=== PATIENT | female | born 1990 | race African-American/Black ===

== ENCOUNTER 2021-02-03 12:42 | Emergency (ER) | payer OTHER, SELFPAY ==
[2021-02-03 12:58] VITALS: BP 103/68; PULSE 76; RESP 16; TEMP 36.3; O2SAT 100
[2021-02-03] MEDS: diphenhydrAMINE HCl CAP 25 MG CAPSULE PO (13:36)
[2021-02-03] MEDS: predniSONE 20 MG TABLET 60 MG PO (13:36)
[2021-02-03] MEDS: FAMOTIDINE 20 MG TABLET PO (13:36)
--- NOTE | 2021-02-03 13:39 | ED.GENADULT ---
HPI - General Adult General Chief complaint: Skin/Abscess/Foreign Body Stated complaint: rash Time Seen by Provider: 02/03/21 13:19 Source: RN notes reviewed History of Present Illness HPI narrative: Patient presents emergency department from home for facial rash. Patient states she woke this morning with a rash on her bilateral face that was raised and itching she denies any new soaps lotions or detergents denies sleeping on any new sheets or blankets denies any swelling of lips or tongue or shortness of breath states she not take anything for the symptoms at home denies any fevers or chills Related Data Home Medications Medication Instructions Recorded Confirmed No Home Medications 02/03/21 02/03/21 Allergies Allergy/AdvReac Type Severity Reaction Status Date / Time No Known Allergies Allergy Verified 02/03/21 14:02 Review of Systems Review of Systems: Gen.: Denies fevers or chills Eyes: Denies eye pain or visual change ENT: Denies congestion or swelling of the lips or tongue Respiratory: Denies shortness of breath or cough CV: Denies chest pain GI: Denies abdominal pain nausea, emesis denies Musculoskeletal: Denies back pain or muscle pain Neuro: Denies headache Skin: See HPI Except as documented, all other systems reviewed and negative PMFSH Past Medical History Medical History (Updated 02/03/21 @ 14:56 by Adán Lr DO) Patient denies significant medical history Social History Social History Smoking status: Unknown if ever smoked Exam Narrative: APPEARANCE: No acute distress, nontoxic, resting in bed EYES: EOMI HEENT: Normocephalic, atraumatic, nares patent or mucosa moist no swelling of lips or tongue airway patent voice normal RESPIRATORY: No respiratory distress Clear to auscultation bilaterally with no rhonchi wheezing or rales. CARDIOVASCULAR: Regular rate and rhythm without murmurs rubs or gallops. ABDOMINAL: Soft, nontender, MUSCULOSKELETAl: Moves all extremities. NEURO: Awake and alert. Following commands, speech normal, no focal deficits SKIN:: Warm, dry. Bilateral cheeks and chin with erythematous raised rash with overlying excoriation no vesicles seen no drainage PSYCHIATRIC: Normal affect/mood, Course Course Emergency Course: Rash has improved with medication. Patient states itching has resolved Discussed with patient results of workup and diagnosis. Discussed need for follow-up with primary care, proper use of medication, and reasons to return to the emergency department. Patient understands and agrees to current treatment plan Vital Signs Vital signs: Vital Signs Temperature 97.3 F L 02/03/21 12:58 Pulse Rate 76 02/03/21 12:58 Respiratory Rate 16 02/03/21 12:58 Blood Pressure 103/68 02/03/21 12:58 Pulse Oximetry 100 02/03/21 12:58 Temperature 97.3 F L 02/03/21 12:58 Pulse Rate 76 02/03/21 12:58 Respiratory Rate 16 02/03/21 12:58 Blood Pressure 103/68 02/03/21 12:58 Pulse Oximetry 100 02/03/21 12:58 Medical Decision Making Vital Signs Vital Signs: Vital Signs Temperature 97.3 F L 02/03/21 12:58 Pulse Rate 76 02/03/21 12:58 Respiratory Rate 16 02/03/21 12:58 Blood Pressure 103/68 02/03/21 12:58 Pulse Oximetry 100 02/03/21 12:58 Temperature 97.3 F L 02/03/21 12:58 Pulse Rate 76 02/03/21 12:58 Respiratory Rate 16 02/03/21 12:58 Blood Pressure 103/68 02/03/21 12:58 Pulse Oximetry 100 02/03/21 12:58 Discharge Plan Discharge Clinical Impression: Contact dermatitis Patient Disposition: Home, Self-Care Condition: Stable Instructions: Antibiotic Form, Contact Dermatitis (ED) Additional Instructions: Return for increasing rash, swelling of the lips or tongue shortness of breath or any other symptoms of concern Prescriptions: New prednisone 20 mg tablet 20 mg PO BID Qty: 8 RF: 0 loratadine 10 mg caps
== END 2021-02-03 15:05 | disposition home or self-care (01) ==
PROVIDERS: Emergency Provider Emergency Medicine
DX: L25.9 Unspecified contact dermatitis, unspecified cause (principal)
CPT/HCPCS: 99283; A9270; J7512

== ENCOUNTER 2021-05-02 11:24 | Emergency (ER) | payer OTHER, SELFPAY ==
[2021-05-02] VITALS (10 sets, daily range): BP systolic 61–120; BP diastolic 46–76; PULSE 68–88; RESP 11–21; TEMP 36.6; O2SAT 99–100
--- NOTE | ~2021-05-02 | XR_ITS ---
EXAMINATION: XR chest 1V portable 05/02/2021 12:43 INDICATION: Chest pain PROCEDURE: AP portable chest COMPARISON: No prior studies for comparison. FINDINGS: The lungs are clear. The cardiomediastinal silhouette is within normal limits. There are no pleural effusions. There is no pneumothorax suspected. IMPRESSION: 1: NO ACUTE CARDIOPULMONARY DISEASE. Reviewed, dictated and finalized at location B. TILE SETTER
--- NOTE | 2021-05-02 12:35 | ECG_ITS ---
Measurements Intervals [place] Rate: 64 P: 79 [place]: 197 QRS: 79 QRSD: 76 T: 61 QT: 387 QTc: 401 Interpretive Statements SINUS RHYTHM NORMAL ECG Electronically Signed On 05-02-2021 13:55:46 [employer]UCATION FIN[employer]ESS[employer] by Alec Salas D.O.
[2021-05-02 13:02] LABS: Basophils Percent Auto 0.5 % (0.2-1.2); Eosinophils Absolute Auto 0.2 K/mm3 (0-0.3); Eosinophils Percent Auto 3.4 % (0-4.4); Hematocrit 39.9 % (37.0-47.0); Hemoglobin 13.7 g/dL (12.0-15.0); Immature Granulocyte Absolute 0.01 K/mm3 (0.00-0.031); Immature Granulocyte Percent A 0.2 % (0-0.5); Lymphocytes Absolute Auto 3.09 K/mm3 (0.9-3.2); Lymphocytes Percent Auto 52.3 % (18.3-44.2); Mean Corpuscular HGB Conc 34.3 g/dl (32-36); Mean Corpuscular Hemoglobin 30.8 pg (26-34); Mean Corpuscular Volume 89.7 fl (80-100); Mean Platelet Volume 9.5 fl (7.4-10.4); Monocytes Absolute Auto 0.6 K/mm3 (0.1-0.6); Neutrophils Percent Auto 33.6 % (45.5-73.1); Platelet Count Result 368 k/mm3 (150-375); Red Blood Count 4.45 M/mm3 (4.2-5.4); Red Cell Distribution Width 11.5 % (11.5-14.5); White Blood Count 5.9 K/mm3 (4.5-10.0)
--- NOTE | 2021-05-02 13:06 | ED.GENADULT ---
HPI - General Adult General Chief complaint: Unspecified Stated complaint: Hurts when she breaths Time Seen by Provider: 05/02/21 12:03 Source: patient, RN notes reviewed and old records reviewed Mode of arrival: ambulatory Limitations: no limitations History of Present Illness HPI narrative: This is a 30 year old female who presents for evaluation of lung pain , back and headache. Patient states she has been having pain in bilateral chest under breath with breathing. This has been occurring every other day for at least 1 year. She states her pain is becoming worse and more severe. She is also complaining of bilateral breast tenderness with drainage or redness. She has mild cough but denies shortness of breath. She also reports migratory headache for 2 days, although she reports having headaches for a while as well. She is also complaining about low back pain that has resolved. She has come to ER today because she wants to know if she has COVID, cancer or anything serious. She states she has spoken with her PCP about her chest pain but they told her she was fine. She denies fever, chills, vomiting, focal weakness or weight loss. She does not take control and her LMP was this week. Related Data Home Medications Medication Instructions Recorded Confirmed No Home Medications 02/03/21 02/03/21 Allergies Allergy/AdvReac Type Severity Reaction Status Date / Time No Known Allergies Allergy Verified 05/02/21 11:56 Review of Systems Review of Systems: All systems reviewed & are unremarkable except as noted in HPI and below PMFSH Past Medical History Medical History (Updated 05/02/21 @ 14:37 by Jocelin Polo MD) Patient denies significant medical history Surgical History Surgical History (Updated 05/02/21 @ 13:12 by Jocelin Polo MD) No pertinent past surgical history Social History Social History (Updated 05/02/21 @ 13:12 by Jocelin Polo MD) Smoking status: Former smoker Alcohol intake: current Substance use: former Substance use type: marijuana Exam Narrative: GENERAL: Well-appearing, well-nourished, and in no acute distress. HEAD: Normocephalic, atraumatic EYES: PERRLA and EOMI, conjunctiva clear without discharge EARS: TM's clear bilaterally without erythema or dullness NOSE: Nares clear, no rhinorrhea or epistaxis THROAT:Mucous membranes moist, Oropharynx normal without erythema, exudate, peritonsillar swelling or fluctuance NECK: Supple, without lymphadenopathy or mass RESPIRATORY: No respiratory distress, Airway patent, Respirations non-labored, Clear to auscultation without rales, rhonchi or wheeze HEART: Regular rate and rhythm. No murmur heard. Normal peripheral pulses. ABDOMEN: Soft, nontender, nondistended, normal active bowel sounds. No masses. No rebound or guarding, No organomegaly. EXTREMITIES: No edema, normal strength with full range of motion. SKIN: Warm, dry, normal color without rash NEURO: Alert and oriented x3. CN 2-12 grossly intact. No focal deficits. PSYCH: Normal mood and affect. Chest: Breast/axilla palpation: no axillary lymphadenopathy and abnormal palpation of the breast (bilateral breast tenderness, no mass, no nipple drainage) Course Reevaluation(s) Reevaluation #1: I have discussed with patient that she was found to have influenza B. Her symptoms started last week so out of window for tamiflu. I i discussed discharge plan. She understands follow up instructions if needed. Date: 05/02/21 Time: 14:10 Vital Signs Vital signs: Vital Signs Temperature 97.9 F 05/02/21 11:43 Pulse Rate 78 05/02/21 11:43 Respiratory Rate 15 05/02/21 11:43 Blood Pressure 120/76 05/02/21 11:43 Pulse Oximetry 100 05/02/21 11:43 Temperature 97.9 F 05/02/21 11:43 Pulse Rate 76 05/02/21 13:15 Respiratory Rate 13 05/02/21 13:15 Blood Pressure 95/66 L 05/02/21 12:18 Pulse Oximetry 100 05/02/21 12:30 Me
[2021-05-02 13:12] LABS: Alanine Aminotransferase 18 U/L (4-35); Albumin Level 4.6 g/dL (3.5-5.1); Alkaline Phosphatase 56 U/L (38-126); Anion Gap 8 mmol/L (8-16); Aspartate Amino Transferase 27 U/L (14-36); Blood Urea Nitrogen 21 mg/dL (7-17); Calcium 8.8 mg/dL (8.4-10.2); Carbon Dioxide 26 mmol/L (22-30); Chloride 103 mmol/L (98-107); Estimated Glomerular Filt Rate > 60; Glucose 101 mg/dL (65-110); Lipase 102 U/L (23-300); Potassium 3.4 mmol/L (3.4-5.0); Sodium 137 mmol/L (137-145)
[2021-05-02 13:15] LABS: Prothrombin Time 12.6 Seconds (11.1-14.7)
[2021-05-02 13:16] LABS: Partial Thromboplastin Time 25.4 SECONDS (22.3-36.8)
[2021-05-02 13:19] LABS: Add Urine Microscopic? YES; Appearance Urine Clear (Clear); Bacteria Urine Trace /hpf; Bilirubin Urine Negative (Negative); Blood Urine Negative (Negative); Color Urine Yellow (Yellow); Glucose Urine UA Negative (Negative); Ketones Urine Negative (Negative); Leukocyte Esterase Ur Negative LEU/UL (Negative); Mucus Urine Few /lpf; Nitrate Urine Negative (Negative); Protein Urine Negative (Negative); Squamous Epithelial Cell Urine Many /hpf (Few); WBC Urine 0-3 /hpf
[2021-05-02 13:23] LABS: D Dimer < 0.22 ug/mL (<0.48); Troponin I < 0.012 ng/mL (0.000-0.034)
--- NOTE | 2021-05-02 13:41 | PC.NURSE ---
REFUSES TORADOL SHOT
[2021-05-03 12:02] LABS: SARS-CoV-2 RNA PCR Negative
== END 2021-05-02 14:44 | disposition home or self-care (01) ==
PROVIDERS: Emergency Provider General Practice; PCP Internal Medicine Infectious Disease
DX: B34.9 Viral infection, unspecified (principal); N64.4 Mastodynia; Z20.822 Contact with and (suspected) exposure to COVID-19; Z87.891 Personal history of nicotine dependence
CPT/HCPCS: 36415; 71045; 80053; 81001; 81025; 83690; 84484; 85025; 85380; 85610; 85730; 93005; 99284; C9803; U0003; U0005

== ENCOUNTER 2022-03-11 19:50 | Observation (INO) | payer OTHER, SELFPAY ==
--- NOTE | ~2022-03-11 | CT_ITS ---
EXAMINATION: CT abdomen pelvis w con DATE: 03/12/2022 01:16 INDICATION: Epigastric, periumbilical, and right upper quadrant abdominal pain. TECHNIQUE: Computed tomography (CT) of the abdomen and pelvis was performed with 100 mL Omnipaque 350 intravenous contrast. Automated exposure control and iterative reconstruction technique were employe d. The dose-length product was 230.47 mGy-cm. COMPARISON: None. FINDINGS: The visualized portions of the lung bases demonstrate minimal atelectasis. No pleural effus ion. The heart size is normal. No pericardial effusion. The liver, gallbladder, spleen, pancreas, adr enal glands, and kidneys are normal. There are no dilated loops of bowel. The appendix is not visuali zed. There is a 2.1 cm corpus luteum cyst in the right ovary. There is physiologic fluid in the pelvi s. There are no pathologically enlarged lymph nodes. There is levoscoliosis of lumbar spine. IMPRESSION: 1. No specific etiology for the patient's symptoms. Reviewed, dictated and finalized at location A. LACER
[2022-03-11 20:08] VITALS: BP 114/69; PULSE 88; RESP 20; TEMP 36.3; O2SAT 99
[2022-03-11 23:33] VITALS: O2SAT 100
--- NOTE | 2022-03-11 23:35 | ED.ABDPAIN ---
HPI - Abdominal Pain General Chief Complaint: Abdominal Pain <ESTHER Licea Last Filed: 03/12/22 04:38> Stated Complaint: pain near belly button x 3 days <ESTHER Licea Last Filed: 03/12/22 04:38> Time Seen by Provider: 03/11/22 23:07 <ESTHER Licea Last Filed: 03/12/22 04:38> Source: patient <ESTHER Licea Last Filed: 03/12/22 04:38> Mode of arrival: ambulatory <ESTHER Licea Filed: 03/12/22 04:38> Limitations: no limitations <ESTHER Licea Last Filed: 03/12/22 04:38> History of Present Illness HPI narrative: Patient is a 31-year-old female who presents the ED with report of abdominal pain. Patient reports having constant pain in her periumbilical region for the last 3 days. She states the pain radiates up to her epigastric region, to her lower abdomen, and around to her back. She states pain is worse with eating. She has not tried anything for her pain. She denies any fever, nausea, vomiting, diarrhea, constipation, urinary sx's, rectal bleeding, Hx of similar pain. <ESTHER Licea Last Filed: 03/12/22 04:38> Related Data Home Medications: Home Medications Medication Instructions Recorded Confirmed No Home Medications 02/03/21 02/03/21 <ESTHER Licea Last Filed: 03/12/22 04:38> Allergies/Adverse Reactions: Allergies Allergy/AdvReac Type Severity Reaction Status Date / Time No Known Allergies Allergy Verified 05/02/21 11:56 <ESTHER Licea Last Filed: 03/12/22 04:38> Review of Systems Review of Systems: CONSTITUTIONAL: Denies fever, chills, or sweats. CARDIOVASCULAR: Denies chest pain. RESPIRATORY: Denies dyspnea. GASTROINTESTINAL: See HPI. Denies nausea, vomiting, constipation, rectal bleeding, or diarrhea. GENITOURINARY: Denies dysuria or hematuria. MUSCULOSKELETAL: See HPI. <Margaret Baig PA-C - Last Filed: 03/12/22 04:38> All systems reviewed & are unremarkable except as noted in HPI and below <Margaret Baig PA-C - Last Filed: 03/12/22 04:38> PMFSH Past Medical History Medical History: Medical History Patient denies significant medical history <Margaret Baig PA-C - Last Filed: 03/12/22 04:38> Surgical History Surgical History: Surgical History No pertinent past surgical history <Margaret Baig PA-C - Last Filed: 03/12/22 04:38> Social History Social History: Social History Smoking status: Former smoker Alcohol intake: current Substance use: former Substance use type: marijuana <Margaret Baig PA-C - Last Filed: 03/12/22 04:38> Exam Narrative: GENERAL: Well appearing, well-nourished, non-toxic, in no acute distress. HEAD: Normocephalic, atraumatic. NECK: Supple. No adenopathy, no masses. RESPIRATORY: Airway patent, respirations nonlabored. Clear to auscultation bilaterally, no rales, rhonchi, wheezing. CARDIOVASCULAR: Regular rate and rhythm without murmurs, rubs, or gallops. Peripheral pulses 2+ and equal bilaterally. ABDOMINAL: Soft, mild tenderness to palpation in periumbilical region, R mid and upper abdomen, epigastric region. Nondistended, no hepatosplenomegaly. Normoactive BS. MUSCULOSKELETAL: Moves all extremities. Strength/ROM intact without gross deformities. SKIN: Warm, dry, normal color. No rashes. NEURO: A&O X3. Speech clear. Cranial nerves II-XII grossly intact. Steady gait. No ataxic movements. PSYCHIATRIC: Appropriate mood and affect. Normal interaction. <Margaret Baig PA-C - Last Filed: 03/12/22 04:38> Course Course Emergency Course: Care turned over to myself at shift change seen evaluate myself. The abdomen is soft mild tender
[2022-03-11] MEDS: SODIUM CHLORIDE 0.9% IV 1,000 ML 999 ML IV CONT (23:44)
[2022-03-11 23:45] VITALS: O2SAT 100
[2022-03-11 23:46] VITALS: BP 109/67; O2SAT 100
[2022-03-11 23:53] LABS: Add Urine Microscopic? NO; Appearance Urine Clear (Clear); Bilirubin Urine Negative (Negative); Blood Urine Negative (Negative); Color Urine Yellow (Yellow); Glucose Urine UA Negative (Negative); Ketones Urine Negative (Negative); Leukocyte Esterase Ur Negative LEU/UL (Negative); Nitrate Urine Negative (Negative); Protein Urine Negative (Negative); Specific Grav Ur 1.025 (1.001-1.035); Urobilinogen Urine 0.2 mg/dL (<2.0)
[2022-03-11 23:55] LABS: Basophils Absolute Auto 0.1 K/mm3 (0.0-0.1); Eosinophils Absolute Auto 0.5 K/mm3 (0-0.3); Eosinophils Percent Auto 7.4 % (0-4.4); Hematocrit 42.2 % (37.0-47.0); Hemoglobin 14.3 g/dL (12.0-15.0); Immature Granulocyte Absolute 0.02 K/mm3 (0.00-0.031); Immature Granulocyte Percent A 0.3 % (0-0.5); Lymphocytes Percent Auto 59.3 % (18.3-44.2); Mean Corpuscular HGB Conc 33.9 g/dl (32-36); Mean Corpuscular Hemoglobin 31.8 pg (26-34); Mean Platelet Volume 9.8 fl (7.4-10.4); Monocytes Absolute Auto 0.5 K/mm3 (0.1-0.6); Monocytes Percent Auto 8.2 % (2.6-8.5); Neutrophils Absolute Auto 1.4 K/mm3 (1.3-6.7); Neutrophils Percent Auto 23.8 % (45.5-73.1); Platelet Count Result 309 k/mm3 (150-375); Red Blood Count 4.49 M/mm3 (4.2-5.4); White Blood Count 6.1 K/mm3 (4.5-10.0)
[2022-03-11 23:56] LABS: Mucus Urine Rare /lpf; Squamous Epithelial Cell Urine Many /hpf (Few); WBC Urine 0-3 /hpf
[2022-03-12] VITALS (30 sets, daily range): BP systolic 74–119; BP diastolic 47–94; PULSE 60–90; RESP 18; TEMP 35.9–36.8; O2SAT 93–100; BMI 24.5
[2022-03-12 00:41] LABS: Alanine Aminotransferase 17 U/L (6-35); Albumin Level 4.8 g/dL (3.5-5.1); Alkaline Phosphatase 47 U/L (38-126); Anion Gap 7 mmol/L (8-16); Aspartate Amino Transferase 27 U/L (14-36); Bilirubin,Total 1.2 mg/dL (0.2-1.3); Blood Urea Nitrogen 21 mg/dL (7-17); Calcium 9.3 mg/dL (8.4-10.2); Carbon Dioxide 27 mmol/L (22-30); Chloride 100 mmol/L (98-107); Estimated CRCL calculation 77 ml/min; Estimated Glomerular Filt Rate > 60; Glucose 82 mg/dL (65-110); Lipase 157 U/L (23-300); Potassium 4.2 mmol/L (3.4-5.0); Sodium 134 mmol/L (137-145)
--- NOTE | 2022-03-12 03:34 | PC.NURSE ---
Awaiting CT results
[2022-03-12 04:34] LABS: Beta HCG Quantitative < 2.39 mIU/ML
[2022-03-12 05:01] LABS: Hematocrit 38.4 % (37.0-47.0); Hemoglobin 12.8 g/dL (12.0-15.0)
[2022-03-12 06:11] LABS: Influenza A QL RT-PCR Negative (Negative); Influenza B QL RT-PCR Negative (Negative); RSV RNA, RT-PCR Negative (Negative); SARS-CoV-2 RNA PCR Negative
[2022-03-12] MEDS: SODIUM CHLORIDE 0.9% IV 1,000 ML 125 ML IV CONT (06:19)
--- NOTE | 2022-03-12 06:30 | OBADM ---
This patient, Sherry Sung, admitted to the OB room [facility] for observation. Patient/family oriented to hospital policies and general routines including ID bracelet, bed and alarms, visiting hours, pain management, procedures, bathroom and other care routines, personal items, smoking policy, room service/diet, and visiting hours. Patient/Family are encouraged to report perceived risks to care and to ask questions if they do not understand what they are told or what they should do.
--- NOTE | 2022-03-12 11:30 | PC.NURSE ---
Dr. Aviles at bedside to assess pt and discuss plan of care.
--- NOTE | 2022-03-12 11:39 | PM.IMHP ---
H&P: HPI History of Present Illness Date/Time: 03/12/22 11:39 Chief Complaint: abdominal pain Narrative: 31 yo admitted through ER with abdominal pain and initial read on CT of concern for an abdominal bleed. Hemoglobin went down 1.5 points but patient had also received a liter of fluid. Currently patient states pain is much better. She is able to lay on her side and take deep breaths each of which were very painful prior. No other complaints. [facility] Past Medical History Medical History (Updated 03/12/22 @ 11:41 by Daly Aviles MD) (normal spontaneous vaginal delivery) Surgical History Surgical History No pertinent past surgical history Social History Social History Smoking status: Former smoker Alcohol intake: current Substance use: former Substance use type: marijuana Meds Home Medications and Allergies Home Medications Medication Instructions Recorded Confirmed Type No Home Medications 02/03/21 03/12/22 History Allergies Allergy/AdvReac Type Severity Reaction Status Date / Time No Known Allergies Allergy Verified 05/02/21 11:56 Vital Signs Vital Signs - 24 hr 03/11/22 20:08 03/11/22 23:33 03/11/22 23:45 Temperature 97.4 F L Pulse Rate 88 Respiratory Rate 20 Blood Pressure 114/69 Pulse Oximetry 99 100 100 Oxygen Delivery Room Air 03/11/22 23:46 03/12/22 00:00 03/12/22 00:01 Temperature Pulse Rate Respiratory Rate Blood Pressure 109/67 74/47 L Pulse Oximetry 100 100 100 Oxygen Delivery 03/12/22 00:15 03/12/22 00:16 03/12/22 00:31 Temperature Pulse Rate Respiratory Rate Blood Pressure 92/67 L 103/62 Pulse Oximetry 100 100 100 Oxygen Delivery 03/12/22 00:32 03/12/22 03:34 03/12/22 00:45 Temperature 98.3 F Pulse Rate 63 Respiratory Rate 18 Blood Pressure 91/62 L Pulse Oximetry 100 100 100 Oxygen Delivery 03/12/22 00:46 03/12/22 01:00 03/12/22 01:01 Temperature Pulse Rate Respiratory Rate Blood Pressure 104/77 100/56 L Pulse Oximetry 100 100 100 Oxygen Delivery 03/12/22 01:18 03/12/22 01:30 03/12/22 01:45 Temperature Pulse Rate Respiratory Rate Blood Pressure Pulse Oximetry 100 95 100 Oxygen Delivery 03/12/22 03:34 03/12/22 03:35 03/12/22 03:45 Temperature Pulse Rate Respiratory Rate Blood Pressure 91/62 L Pulse Oximetry 100 100 100 Oxygen Delivery 03/12/22 03:46 03/12/22 03:49 03/12/22 04:00 Temperature Pulse Rate Respiratory Rate Blood Pressure 93/60 L 92/56 L Pulse Oximetry 100 100 100 Oxygen Delivery 03/12/22 04:01 03/12/22 04:15 03/12/22 04:16 Temperature Pulse Rate Respiratory Rate Blood Pressure 101/64 112/94 H Pulse Oximetry 100 100 100 Oxygen Delivery 03/12/22 04:30 03/12/22 04:31 03/12/22 06:07 Temperature 98.2 F Pulse Rate 90 Respiratory Rate 18 Blood Pressure 115/78 115/68 Pulse Oximetry 100 99 100 Oxygen Delivery 03/12/22 06:09 03/12/22 04:33 03/12/22 06:39 Temperature 98.1 F 96.6 F L Pulse Rate 90 Respiratory Rate 18 Blood Pressure 119/75 Pulse Oximetry 100 93 Oxygen Delivery 03/12/22 06:36 03/12/22 09:10 Temperature Pulse Rate 76 Respiratory Rate Blood Pressure 106/72 Pulse Oximetry Oxygen Delivery Room Air Exam Const: General: healthy appearing and comfortable; No acute distress Nutritional Appearance: thin Orientation/consciousness: patient oriented x3 Resp: Effort & Inspection: normal respiratory effort GI: Inspection: normal to inspection and non-distended GI Palp: Yes abdominal tenderness (very mild lower quadrants), Yes Soft to palpation and No Guarding due to palpation present (GI) H&P: Results Labs Labs: Short CBC 03/11/22 03/12/22 Range/Units 23:35 04:56 WBC 6.1
[2022-03-12 13:16] LABS: Hematocrit 43.7 % (37.0-47.0); Mean Corpuscular HGB Conc 34.3 g/dl (32-36); Mean Corpuscular Hemoglobin 31.3 pg (26-34); Mean Platelet Volume 9.7 fl (7.4-10.4); Platelet Count Result 340 k/mm3 (150-375); Red Cell Distribution Width 11.7 % (11.5-14.5); White Blood Count 6.7 K/mm3 (4.5-10.0)
--- NOTE | 2022-03-19 09:01 | PM.OBTRLD ---
OB - Triage/Final Diagnosis Visit Information Reason for evaluation: other ( abdominal pain) Comments/Additional reasons for admission: I have assessed the risk for this patient, Sherry Sung, and determined that she would benefit from observation care. Evaluation Laboratory results: Laboratory Tests 03/11/22 03/11/22 03/11/22 23:35 23:35 23:35 WBC 6.1 RBC 4.49 Hgb 14.3 Hct 42.2 MCV 94.0 MCH 31.8 MCHC 33.9 RDW 12.0 Plt Count 309 MPV 9.8 Immature Gran % (Auto) 0.3 Neut % (Auto) 23.8 L Lymph % (Auto) 59.3 H [place] % (Auto) 8.2 Eos % (Auto) 7.4 H Baso % (Auto) 1.0 Lymph # (Auto) 3.60 H [place] # (Auto) 0.5 Eos # (Auto) 0.5 H Baso # (Auto) 0.1 Abs Immat Gran (auto) 0.02 Absolute Neuts (auto) 1.4 Absolute Nucleated RBC 0.0 Nucleated RBC % 0.0 Sodium 134 L Potassium 4.2 Chloride 100 Carbon Dioxide 27 Anion Gap 7 L BUN 21 H Creatinine 0.70 Estim Creat Clear Calc 77 Estimated GFR > 60 Glucose 82 Calcium 9.3 Total Bilirubin 1.2 AST 27 ALT 17 Alkaline Phosphatase 47 Total Protein 8.0 Albumin 4.8 Lipase 157 Beta HCG, Quant Urine Color Yellow Urine Appearance Clear Urine pH 6.0 Ur Specific [place] 1.025 Urine Protein Negative Urine Glucose (UA) Negative Urine Ketones Negative Ur Blood (Man) Negative Urine Nitrate Negative Urine Bilirubin Negative Urine Urobilinogen 0.2 Leukocyte Esterase Rfl Negative Urine RBC 3-5 H Urine WBC 0-3 Ur Squamous Epith Cells Many H Urine Mucus Rare Influenza A (RT-PCR) Influenza B (RT-PCR) RSV (RT-PCR) SARS-CoV-2 RNA (RT-PCR) 03/11/22 03/12/22 03/12/22 23:35 04:56 05:27 WBC RBC Hgb 12.8 Hct 38.4 MCV MCH MCHC RDW Plt Count MPV Immature Gran % (Auto) Neut % (Auto) Lymph % (Auto) [place] % (Auto) Eos % (Auto) Baso % (Auto) Lymph # (Auto) [place] # (Auto) Eos # (Auto) Baso # (Auto) Abs Immat Gran (auto) Absolute Neuts (auto) Absolute Nucleated RBC Nucleated RBC % Sodium Potassium Chloride Carbon Dioxide Anion Gap BUN Creatinine Estim Creat Clear Calc Estimated GFR Glucose Calcium Total Bilirubin AST ALT Alkaline Phosphatase Total Protein Albumin Lipase Beta HCG, Quant < 2.39 Urine Color Urine Appearance Urine pH Ur Specific [place] Urine Protein Urine Glucose (UA) Urine Ketones Ur Blood (Man) Urine Nitrate Urine Bilirubin Urine Urobilinogen Leukocyte Esterase Rfl Urine RBC Urine WBC Ur Squamous Epith Cells Urine Mucus Influenza A (RT-PCR) Negative Influenza B (RT-PCR) Negative RSV (RT-PCR) Negative SARS-CoV-2 RNA (RT-PCR) Negative 03/12/22 13:01 WBC 6.7 RBC 4.80 Hgb 15.0 Hct 43.7 MCV 91.0 MCH 31.3 MCHC 34.3 RDW 11.7 Plt Count 340 MPV 9.7 Immature Gran % (Auto) Neut % (Auto) Lymph % (Auto) [place] % (Auto) Eos % (Auto) Baso % (Auto) Lymph # (Auto) [place] # (Auto) Eos # (Auto) Baso # (Auto) Abs Immat Gran (auto) Absolute Neuts (auto) Absolute Nucleated RBC Nucleated RBC % Sodium Potassium Chloride Carbon Dioxide Anion Gap BUN Creatinine Estim Creat Clear Calc Estimated GFR Glucose Calcium Total Bilirubin AST ALT Alkaline Phosphatase Total Protein Albumin Lipase Beta HCG, Quant Urine Color Urine Appearance Urine pH Ur Specific [place] Urine Protein Urine Glucose (UA) Urine Ketones Ur Blood (Man) Urine Nitrate Urine Bilirubin Urine Urobilinogen Leukocyte Esterase Rfl Urine RBC Urine WBC Ur Squamous Epith Cells Urine Mucus Influenza A (RT-PCR) Influenza B (RT-PCR) RSV (RT-PCR) SARS-CoV-2 RNA (RT-PCR)
== END 2022-03-12 13:49 | disposition home or self-care (01) ==
LOC: ANHED 03-12 05:19 → ANHOBPP 03-12 05:59
PROVIDERS: Physician Assistant; Admitting Provider Obstetrics & Gynecology Gynecology; Emergency Provider Emergency Medicine; PCP Internal Medicine Infectious Disease; Visit Provider Obstetrics & Gynecology Gynecology
DX: O26.899 Other specified pregnancy related conditions, unspecified trimester (principal); R10.9 Unspecified abdominal pain; Z20.822 Contact with and (suspected) exposure to COVID-19; Z3A.00 Weeks of gestation of pregnancy not specified
CPT/HCPCS: 36415; 74177; 80053; 81003; 81025; 83690; 84702; 85014; 85018; 85025; 85027; 87637; 96360; 96365; 99285; G0378; G0379; J0131; J7030; Q9967

== ENCOUNTER 2023-10-02 12:59 | Emergency (ER) | payer OTHER, SELFPAY ==
[2023-10-02 13:07] VITALS: BP 100/63; PULSE 85; RESP 16; TEMP 36.6; O2SAT 98
--- NOTE | 2023-10-02 15:18 | PC.NURSE ---
Patient called for. Not found in lobby.
== END 2023-10-02 16:52 | disposition left against medical advice (07) ==
LOC: ANHED 16:47
PROVIDERS: PCP Internal Medicine Infectious Disease
DX: S51.811A Laceration without foreign body of right forearm, initial encounter (principal)
CPT/HCPCS: 99199

== ENCOUNTER 2023-10-20 10:09 | Emergency (ER) | payer OTHER, SELFPAY ==
[2023-10-20 10:27] VITALS: BP 103/75; PULSE 65; RESP 16; TEMP 36.4; O2SAT 100
--- NOTE | 2023-10-20 11:07 | ED.SKABFB ---
HPI - Skin/Abscess/Foreign Bdy General Chief complaint: Skin/Abscess/Foreign Body Stated complaint: wants stitiches removed Time Seen by Provider: 10/20/23 10:40 History of Present Illness HPI narrative: This is a 33-year-old female presented to the ED for suture removal. She had sutures placed onto her right ulnar aspect of forearm on the of last month. Wound is healed nicely and she has had no systemic features of infection or any drainage from the area. No other complaints. Related Data Home Medications Medication Instructions Recorded Confirmed No Home Medications 02/03/21 03/12/22 Allergies Allergy/AdvReac Type Severity Reaction Status Date / Time No Known Allergies Allergy Verified 05/02/21 11:56 Review of Systems Review of Systems: As [facility] Past Medical History Medical History (normal spontaneous vaginal delivery) Surgical History Surgical History No pertinent past surgical history Social History Social History Smoking status: Former smoker Alcohol intake: current Substance use: former Substance use type: marijuana Exam Narrative: GENERAL: [Well-appearing, well-nourished, and in no acute distress.] HEAD: [Normocephalic, atraumatic.] EYES: [PERRLA and EOMI.] ENT: Nares clear, no rhinorrhea or epistaxis. Mucous membranes moist. CHEST: Symmetric chest rise EXTREMITIES: Normal range of motion. [No edema.] SKIN: Warm, dry, no rash. Previous is site looks clean, dry, intact, 7 sutures are in in line in the ulnar aspect of the right forearm. No infection. Course Vital Signs Vital signs: Vital Signs Temperature 36.4 C 10/20/23 10:27 Pulse Rate 65 10/20/23 10:27 Respiratory Rate 16 10/20/23 10:27 Blood Pressure 103/75 10/20/23 10:27 Pulse Oximetry 100 10/20/23 10:27 Temperature 36.4 C 10/20/23 10:27 Pulse Rate 65 10/20/23 10:27 Respiratory Rate 16 10/20/23 10:27 Blood Pressure 103/75 10/20/23 10:27 Pulse Oximetry 100 10/20/23 10:27 MDM - Skin/Abscess/Foreign Bdy MDM Narrative Medical decision making narrative: This is a 33-year-old female presenting for suture removal. Seven sutures removed without issue. No signs of infection. Wound is well healing. She is told to follow up with her regular outpatient primary care provider as needed. Discharge Plan Discharge Clinical Impression: Encounter for removal of sutures Patient Disposition: Home, Self-Care Condition: Stable Instructions: Antibiotic Form, Stitches Removal (ED) Prescriptions: No Action No Home Medications Follow-up/Referrals: Nica,Eladio Moreland [Primary Care Provider] - Time of Disposition: 11:09
== END 2023-10-20 11:52 | disposition home or self-care (01) ==
PROVIDERS: Emergency Provider Student in an Organized Health Care Education/Training Program; PCP Internal Medicine Infectious Disease
DX: S51.801D Unspecified open wound of right forearm, subsequent encounter (principal); X58.XXXD Exposure to other specified factors, subsequent encounter
CPT/HCPCS: 15853; 99281